=== PATIENT | male | born 1975 | race Caucasian/White ===

== ENCOUNTER 2016-12-10 01:05 | Emergency (ER) | payer BC ==
[2016-12-10 01:13] VITALS: TEMP 97.8
--- NOTE | 2016-12-10 01:41 | ED ---
Extremity Problem HPI - General Chief complaint: Extremity Problem,Nontraumatic Stated complaint: right side numb Time Seen by Provider: 12/10/16 01:21 Source: patient, RN notes reviewed Mode of arrival: ambulatory Limitations: no limitations - History of Present Illness Initial comments: Patient is a 41-year-old male presents to the emergency room for evaluation of right arm numbness. Patient states he went to bed around 8:30 yesterday evening he woke up around 10:30 with numbness radiating from the right side of his neck down his right arm. Patient denies weakness. Patient denies pain. Patient denies recent changes in physical activity. Patient states this sensation has not gone away since he noticed at 10:30 last night. Patient denies headache or dizziness. Patient denies changes in vision. Patient denies chest pain. Patient also states he's having a "twinge" in his right lung. Patient states he had PE when he was younger and states that he is afraid he has one now. Patient has shortness of breath or chest pain. Patient denies neck pain or low back pain. Patient denies recent falls or trauma to his neck or right arm. - Related Data Previous Rx's Medication Instructions Recorded Orphenadrine [Norflex] 100 mg PO Q12H PRN #12 tablet.er 12/10/16 predniSONE 50 mg PO DAILY #4 tab 12/10/16 Allergies Allergy/AdvReac Type Severity Reaction Status Date / Time No Known Allergies Allergy Verified 12/10/16 01:13 Review of Systems ROS Statement: Those systems with pertinent positive or pertinent negative responses have been documented in the HPI. ROS Other: All systems not noted in ROS Statement are negative. Past Medical History Past Medical History: No Reported History History of Any Multi-Drug Resistant Organisms: None Reported Past Surgical History: No Surgical Hx Reported Past Psychological History: No Psychological Hx Reported Smoking Status: Former smoker Past Alcohol Use History: Occasional Past Drug Use History: None Reported General Exam - General Exam Comments Initial Comments: Sitting in exam room, no acute distress. Limitations: no limitations General appearance: alert, in no apparent distress Head exam: Present: atraumatic, normocephalic, normal inspection Eye exam: Present: normal appearance, PERRL, EOMI Pupils: Present: normal accommodation ENT exam: Present: normal exam, normal oropharynx Neck exam: Present: normal inspection, full ROM. Absent: tenderness, lymphadenopathy Respiratory exam: Present: normal lung sounds bilaterally. Absent: respiratory distress Cardiovascular Exam: Present: regular rate, normal rhythm, normal heart sounds Right Shoulder Exam: Present: normal inspection, full ROM. Absent: tenderness Elbow exam: Present: normal inspection, full ROM. Absent: tenderness Forearm Wrist exam: Present: normal inspection, full ROM. Absent: tenderness Hand Wrist exam: Present: normal inspection, full ROM. Absent: tenderness Neuro motor exam: Present: wrist extension intact, thumb opposition intact, thumb IP flexion intact, thumb adduction intact, fingers 2-5 abduction intact Vascular: Present: normal capillary refill (Capillary refill less than 2 seconds ), radial pulse (2+), ulnar pulse (2+) Back exam: Present: normal inspection Neurological exam: Present: alert, oriented X3, CN II-XII intact, normal gait Expanded Patient oriented to: Present: person, place, time Speech: Present: fluid speech Cranial nerves: EOM's Intact: Normal, Facial Sensation: Normal Sensory exam: Upper Extremity Light Touch: Normal, Lower Extremity Light Touch: Normal Motor strength exam: RUE: 5, LUE: 5, RLE: 5, LLE: 5 Eye Response: (4) open spontaneously Motor Response: (6) obeys commands Verbal Response: (5) oriented Psychiatric exam: Present: normal affect, normal mood Skin exam: Present: warm, dry, intact, normal color. Absent: rash Course Vital Signs 12/10/16 12/10/16 12/10/16 01:07 03:50 04:13 Temperature 97.8 F Pulse Rate 114 H 105 H 99 Respiratory 20 16 16 Rate Blood Pressure 165/95 157/100 168/101 O2 Sat by Pulse 96 97 98 Oximetry 12/10/16 04:22 Temperature Pulse Rate 93 Respiratory 16 Rate Blood Pressure 153/87 O2 Sat by Pulse 98 Oximetry Medical Decision Making - Medical Decision Making Patient is a 41-year-old male presents emergency room for evaluation of right arm numbness. Patient also states he felt a twinge in his right lung and has a history of a PE. D-dimer negative. Chest x-ray shows no concerning findings. Cervical spine x-ray shows possible spasming. Patient has no neuro deficits. No facial drooping. Patient will be placed on prednisone and Norflex. Advised patient to follow-up with primary care provider for reevaluation. Advised patient to return for worsening symptoms. Patient states he understands everything that was discussed with him. Case discussed with Dr. Turner. - Lab Data Lab Results 12/10/16 Range/Units 02:35 D-Dimer <0.17 (<0.60) mg/L FEU - Radiology Data Radiology results: report reviewed, image reviewed Disposition Clinical Impression: Arm paresthesia, right Disposition: HOME SELF-CARE Condition: Good Instructions: Paresthesia (ED) Additional Instructions: Take medications as directed. Please follow up with primary care provider in 1- 2 days for reevaluation. If any new symptom arises or symptoms worsen, return to ER as soon as possible. Prescriptions: Orphenadrine [Norflex] 100 mg PO Q12H PRN #12 tablet.er PRN Reason: Pain predniSONE 50 mg PO DAILY #4 tab Referrals: None,Stated [Primary Care Provider] - 1-2 days Time of Disposition: 03:42
[2016-12-10] MEDS ORDERED: predniSONE 50 MG TAB PO STA (02:25)
--- NOTE | 2016-12-10 02:28 | XR ---
EXAM: XR Chest, 2 Views. CLINICAL HISTORY: Reason: Pain TECHNIQUE: Frontal and lateral views of the chest. COMPARISON: No relevant prior studies available. FINDINGS: Lungs: Unremarkable. No consolidation. Pleural space: Unremarkable. No pneumothorax. Heart: Unremarkable. No cardiomegaly. Mediastinum: Unremarkable. Bones/joints: Multilevel degenerative changes of the spine. IMPRESSION: No acute cardiopulmonary abnormality.
--- NOTE | 2016-12-10 02:32 | XR ---
EXAM: XR Cervical Spine, 4 or 5 Views. CLINICAL HISTORY: Reason: Pain TECHNIQUE: Frontal, lateral and oblique views of the cervical spine. COMPARISON: No relevant prior studies available. FINDINGS: Vertebrae: Cervical straightening which may be secondary to positioning vs. spasm. No acute fracture. Normal alignment. Disc spaces: Disc space narrowing is seen at C5/C6 and C6/C7 with marginal osteophytes. No gross foraminal encroachment seen on radiograph. Soft tissues: Unremarkable. IMPRESSION: 1. Cervical straightening which may be secondary to positioning vs. spasm. 2. Disc space narrowing is seen at C5/C6 and C6/C7 with marginal osteophytes.
[2016-12-10 04:17] VITALS: RESP 16
[2016-12-10] MEDS ORDERED: cloNIDine HCL 0.1 MG TAB PO STA (04:17)
[2016-12-10 04:24] VITALS: BP 153/87; PULSE 93
== END 2016-12-10 04:29 | disposition home or self-care (01) ==
LOC: EC 01:05
DX: R20.2 Paresthesia of skin (principal); J98.4 Other disorders of lung; Z87.891 Personal history of nicotine dependence
CPT/HCPCS: 99284; 36415; 93005; 85379; 71020; 72050; J7512